=== PATIENT | female | born 2000 | race Caucasian/White ===

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

== ENCOUNTER 2024-12-01 14:22 | Emergency (ER) | payer OTHER ==
[~2024-12-01] VITALS: Ht 162.6 cm; Wt 54.0 kg
[2024-12-01 14:51] VITALS: BP 115/49
== END 2024-12-01 15:01 | disposition home or self-care (01) ==
LOC: ER 14:22
DX: Z00.01 Encounter for general adult medical examination with abnormal findings (principal); Z88.1 Allergy status to other antibiotic agents
CPT/HCPCS: 93005; 93010; 99284-25

== ENCOUNTER 2025-05-04 07:53 | Emergency (ER) | payer OTHER ==
[~2025-05-04] VITALS: Ht 162.6 cm; Wt 46.7 kg
[2025-05-04 08:48] LABS: BASOPHILS ABSOLUTE AUTO 0.03 K/mm3 (0.00-0.23); BASOPHILS PERCENT AUTO 1 % (0-2); EOSINOPHILS ABSOLUTE AUTO 0.07 K/mm3 (0.00-0.68); EOSINOPHILS PERCENT AUTO 2 % (0-6); Hematocrit 37.4 % (33.0-51.0); Hemoglobin 12.6 g/dL (11.5-16.0); IMMATURE GRAN ABSOLUTE AUTO 0.01 K/mm3 (0.00-0.10); IMMATURE GRAN PERCENT AUTO 0 % (0-1); LYMPHOCYTES ABSOLUTE AUTO 1.68 K/mm3 (0.84-5.20); LYMPHOCYTES PERCENT AUTO 38 % (21-46); MONOCYTES ABSOLUTE AUTO 0.32 K/mm3 (0.16-1.47); MONOCYTES PERCENT AUTO 7 % (4-13); Mean Corpuscular HGB Conc 33.7 g/dL (31.5-36.5); Mean Corpuscular Volume 91 fL (80-100); NEUTROPHILS ABSOLUTE AUTO 2.26 K/mm3 (1.96-9.15); NEUTROPHILS PERCENT AUTO 52 % (41-73); NRBC ABSOLUTE 0.00 K/mm3 (0.00-0.02); NRBC Auto 0.0 /100 WBC (0.0-0.2); Platelet Count 185 K/mm3 (150-400); RDW Coefficient Variation 12.3 % (11.7-14.2); RDW Standard Deviation 40.7 fL (35.1-46.3)
[2025-05-04 09:05] LABS: Alanine Aminotransfer (ALT/SGP 22.0 U/L (12-78); Albumin, Blood 3.6 g/dL (3.4-5.0); Albumin/Globulin Ratio 1.1 (0.8-1.8); Anion Gap 7.0 mmol/L (3-11); Aspartate Aminotrans (AST/SGOT 20.0 U/L (12-37); Bilirubin, Total 0.9 mg/dL (0.1-1.0); Blood Urea Nitrogen 13.0 mg/dL (8-24); CO2, Blood 24.0 mmol/L (21-32); Calcium, Blood 8.5 mg/dL (8.5-10.1); Chloride, Blood 110.0 mmol/L (98-108); Creatinine, Blood 0.62 mg/dL (0.40-1.00); Globulin, Blood 3.2 g/dL (2.2-4.0); Glucose, Blood 79.0 mg/dL (70-99); Potassium, Blood 3.7 mmol/L (3.5-5.5); Sodium, Blood 137.0 mmol/L (136-145); Total Protein, Blood 6.8 g/dL (6.4-8.2)
[2025-05-04] MEDS ORDERED: Lidocaine 2% Viscous Soln 15 ML UDC PO ONE (09:20)
[2025-05-04] MEDS ORDERED: Ketorolac Tromethamine 15mg Vial IV ONE (09:20)
[2025-05-04] MEDS ORDERED: Magnesium-Alum360 ML PO (10:28)
[2025-05-04 10:30] VITALS: BP 110/48
== END 2025-05-04 10:49 | disposition home or self-care (01) ==
LOC: ER 07:53
PROVIDERS: Physician Assistant
DX: M94.0 Chondrocostal junction syndrome [Tietze] (principal); K21.9 Gastro-esophageal reflux disease without esophagitis; Z88.0 Allergy status to penicillin; Z79.899 Other long term (current) drug therapy
CPT/HCPCS: 71046; 80053; 85025; 85379; 93005; 93010; 96374; 99284-25; A9270; J1885

== ENCOUNTER 2025-07-14 03:02 | Emergency (ER) | payer OTHER ==
[~2025-07-14] VITALS: Ht 165.1 cm; Wt 46.3 kg
[~2025-07-14 03:02] MED LIST changes: +Magnesium-Alum360 ML PO
[2025-07-14 03:17] VITALS: BP 136/82
== END 2025-07-14 04:13 | disposition home or self-care (01) ==
LOC: ER 03:02
DX: S61.411A Laceration without foreign body of right hand, initial encounter (principal); W25.XXXA Contact with sharp glass, initial encounter; Z88.0 Allergy status to penicillin
CPT/HCPCS: 73120; 99283-25